=== PATIENT | male | born 1970 | race Caucasian/White ===

== ENCOUNTER → 2024-07-02 | Outpatient (CLI) | payer OTHER ==
[2024-07-02 11:18] LABS: INR 0.9 (<1.2); Prothrombin Time 10.3 sec (10.0-12.5)
[2024-07-02 14:52] LABS: HCT 44.1 % (39.6-50.0); HGB 14.1 g/dL (13.0-17.0); MCH 30.4 pg (27.0-32.0); Mean Platelet Volume 10.6 FL (9.5-12.2); NRBC Per 100 WBC 0 X 10*3/uL (0.00-0.01); Platelet Count 230 X 10*3/uL (140-440); RBC 4.64 X 10*6/uL (4.40-5.60); RDW 12.5 % (11.5-14.5); WBC 4.42 X 10*3/uL (4.50-10.00)
[2024-07-02 15:07] LABS: Blood Urea Nitrogen 18.9 mg/dL (9.0-27.0); Carbon Dioxide 25.3 mmol/L (21.6-31.8); Chloride 105 mmol/L (96-109); Glucose 99 mg/dL (70-110); Potassium 4.2 mmol/L (3.5-5.5); Sodium 141 mmol/L (135-145)
[2024-07-02 15:08] LABS: ALT 23 U/L (10-49); AST 18 U/L (14-35); Albumin 4.6 g/dL (3.8-4.9); Alkaline Phosphatase 54 U/L (41-126); Calcium 9.5 mg/dL (8.7-10.3); Globulin 2.3 g/dL (1.6-3.3); Total Bilirubin 0.9 mg/dL (0.3-1.2); Total Protein 6.9 g/dL (6.2-8.2)
== END | disposition home or self-care (01) ==
LOC: LABPAT 09:58
PROVIDERS: ATTEND Orthopaedic Surgery
DX: Z01.818 Encounter for other preprocedural examination (principal); Z22.322 Carrier or suspected carrier of Methicillin resistant Staphylococcus aureus; E11.9 Type 2 diabetes mellitus without complications; M17.12 Unilateral primary osteoarthritis, left knee
CPT/HCPCS: 36415; 80053; 83036; 85027; 85610; 85730; 93005

== ENCOUNTER → 2024-07-09 | Outpatient (CLI) | payer OTHER ==
--- NOTE | 2024-07-09 10:40 | CT ---
EXAMINATION TYPE: CT left knee - [facility] Protocol DATE OF EXAM: 07/09/2024 10:20 AM COMPARISON: None. CLINICAL INDICATION: Male, 54 years old with history of M25.562 pain L knee, LT knee [facility] protocol, TECHNIQUE: CT scanning of the pelvis, bilateral knees, and bilateral ankles with coronal and sagittal reconstructions performed. CT DLP: 735 mGycm, Automated exposure control for dose reduction was used. FINDINGS: Pelvis: There appears to be a prominent anterolisthesis at L5-S1 possibly secondary to L5 pars defects. Degen erative bony ankylosis at the bilateral SI joints. Sigmoid diverticulosis and moderate stool. Multiple pelvic phleboliths. Mild right greater than left hip degenerative change. No acute fracture, subluxation, dislocation seen. Bilateral Knees: There is moderate to severe degenerative change of both medial compartments. Additional degenerative spurring patellofemoral compartment with moderate bilateral knee joint effusions. Small Padilla's cyst on the left. Bilateral Ankles: The tibiotalar and subtalar joints appear intact. No acute fracture, subluxation, or dislocation is s een. IMPRESSION: 1. PELVIS: THERE APPEARS TO BE A PROMINENT ANTEROLISTHESIS AT L5-S1 POSSIBLY SECONDARY TO L5 PARS DEF ECTS. DEGENERATIVE BONY ANKYLOSIS SI JOINTS. MILD RIGHT GREATER THAN LEFT HIP OA. SIGMOID DIVERTICULO SIS. 2. KNEES: MODERATE TO SEVERE DEGENERATIVE CHANGE BILATERAL MEDIAL COMPARTMENTS. MODERATE KNEE JOINT E FFUSIONS. SMALL PADILLA'S CYST ON THE LEFT. 3. ANKLES: NO ACUTE OSSEOUS ABNORMALITY SEEN. [facility], , 07/09/2024 10:37 AM
== END | disposition home or self-care (01) ==
LOC: RADCTMAIN 07:42
PROVIDERS: ATTEND Orthopaedic Surgery
DX: M17.12 Unilateral primary osteoarthritis, left knee (principal); K57.30 Diverticulosis of large intestine without perforation or abscess without bleeding; M16.12 Unilateral primary osteoarthritis, left hip; M17.0 Bilateral primary osteoarthritis of knee; M25.462 Effusion, left knee; M53.3 Sacrococcygeal disorders, not elsewhere classified; M71.22 Synovial cyst of popliteal space [Baker], left knee

== ENCOUNTER → 2024-07-14 | Outpatient (CLI) | payer OTHER | END | disposition home or self-care (01) | LOC: LABWHC1 08:32 | PROVIDERS: ATTEND Orthopaedic Surgery | DX: Z01.818 Encounter for other preprocedural examination (principal); Z22.322 Carrier or suspected carrier of Methicillin resistant Staphylococcus aureus; M17.12 Unilateral primary osteoarthritis, left knee; E11.9 Type 2 diabetes mellitus without complications | CPT/HCPCS: 87070 ==

== ENCOUNTER → 2024-12-31 | Outpatient (CLI) | payer OTHER ==
[2024-12-31 10:46] LABS: INR 1.0 (<1.2); Partial Thromboplastin Time 24.9 sec (22.0-30.0); Prothrombin Time 10.7 sec (10.0-12.5)
[2024-12-31 15:26] LABS: HCT 41.0 % (39.6-50.0); HGB 13.4 g/dL (13.0-17.0); MCH 31.7 pg (27.0-32.0); MCHC 32.7 g/dL (32.0-37.0); MCV 96.9 FL (80.0-97.0); NRBC Per 100 WBC 0 X 10*3/uL (0.00-0.01); Platelet Count 208 X 10*3/uL (140-440); RBC 4.23 X 10*6/uL (4.40-5.60); RDW 12.9 % (11.5-14.5); WBC 4.42 X 10*3/uL (4.50-10.00)
[2024-12-31 15:55] LABS: BUN/Creat Ratio 19.12 Ratio (12.00-20.00); Blood Urea Nitrogen 15.3 mg/dL (9.0-27.0); Chloride 106 mmol/L (96-109); Glucose 85 mg/dL (70-110); Potassium 4.3 mmol/L (3.5-5.5); Sodium 141 mmol/L (135-145)
[2024-12-31 15:56] LABS: ALT 29 U/L (10-49); AST 22 U/L (14-35); Albumin 4.2 g/dL (3.8-4.9); Albumin/Globulin Ratio 3.23 Ratio (1.60-3.17); Alkaline Phosphatase 47 U/L (41-126); Anion Gap 12.20 mmol/L (4.00-12.00); Calcium 8.3 mg/dL (8.7-10.3); Carbon Dioxide 22.8 mmol/L (21.6-31.8); Globulin 1.3 g/dL (1.6-3.3); Total Protein 5.5 g/dL (6.2-8.2)
--- NOTE | 2025-01-01 11:20 | CT ---
EXAMINATION TYPE: CT right knee - [facility] Protocol DATE OF EXAM: 12/31/2024 11:40 AM COMPARISON: None. CLINICAL INDICATION: Male, 54 years old with history of M17.11 UNILATERAL PRIMARY OSTEOARTHRITIS, RIG HT KN, , pain TECHNIQUE: [facility] presurgical planning of the right knee. Images were obtained in the axial plane at 2 mm thick sections through the hip and ankle and 1 mm thick sections through the knee. Reconstructed i mages in the coronal and sagittal plane are reviewed. Contrast used: mL of , (none if empty) Oral contrast used: (none if empty) CT DLP: 585 mGycm, Automated exposure control for dose reduction was used. FINDINGS: Hip: Right femoral head articulates with the acetabulum. Diffuse joint space narrowing of the bilater al hips is noted. No acute fracture is evident. Knee: There is moderate severe narrowing of the medial compartment joint space. Anterior tibial plate au femoral condylar spurring is noted. Medial and lateral femoral condylar spurring tibial plateau sp urring is evident. There is narrowing of the patellofemoral joint space. Small joint effusion is pres ent. Mild to moderate narrowing of the lateral compartment joint space is present. Ankle: Ankle mortise sees appear normal bilaterally. No acute fractures evident. Soft tissues are nor mal. IMPRESSION: 1. CT for [facility] knee presurgical planning. [facility], Workstation: [facility], 01/01/2025 11:18 AM
== END | disposition home or self-care (01) ==
LOC: RADCTMAIN 09:29
PROVIDERS: ATTEND Orthopaedic Surgery
DX: Z01.818 Encounter for other preprocedural examination (principal); Z01.812 Encounter for preprocedural laboratory examination; Z22.322 Carrier or suspected carrier of Methicillin resistant Staphylococcus aureus; M17.11 Unilateral primary osteoarthritis, right knee; M25.461 Effusion, right knee; E11.9 Type 2 diabetes mellitus without complications
CPT/HCPCS: 80053; 83036; 85027; 85610; 85730; 87070; 93005

== ENCOUNTER 2025-01-11 05:36 | Day surgery (SDC) | payer OTHER ==
[2025-01-11] MEDS ORDERED: fentaNYL (PF) 50 MCG/ML 2 ML AMP IVP PRN (05:48)
[2025-01-11] MEDS ORDERED: LIDOCAINE 1% (10MG/ML) FOR IV START INTRADERMA PRN (05:48)
[2025-01-11] MEDS ORDERED: DEXAMETHASONE SOD PHOSPHATE 4 MG/ML 1 ML VIAL IV ONE (05:48)
[2025-01-11] MEDS ORDERED: TRANEXAMIC 1,000 MG/100ML-NACL 1,000 MG in SALINE 1 100ML.BAG IVPB SCH (06:00)
[2025-01-11] MEDS ORDERED: ONDANSETRON 4 MG/2 ML VIAL IVP PRN (06:00)
[2025-01-11] MEDS: IV FLUID CONTINUATION 1,000 ML IV ONE ×2 (06:06→11:53)
[2025-01-11] MEDS: ONDANSETRON 4 MG/2 ML VIAL IVP ONE (06:22)
[2025-01-11] MEDS: LACTATED RINGERS 1,000 ML IV SCH (06:22)
[2025-01-11] MEDS: DEXAMETHASONE SOD PHOSPHATE 10 MG/ML 1 ML VIAL IV PRN (06:30)
[2025-01-11] MEDS: FAMOTIDINE 20 MG/2 ML VIAL IVP PRN (06:30)
[2025-01-11] MEDS: KETOROLAC 15 MG/ML 1 ML VIAL IVP PRN (06:30)
[2025-01-11] MEDS: DOCUSATE 100 MG CAP PO PRN (06:30)
[2025-01-11] MEDS: ACETAMINOPHEN TAB 500 MG TAB PO PRN (06:30)
[2025-01-11] MEDS: oxyCODONE ER 10 MG TAB.ER.12H PO PRN (06:30)
[2025-01-11] MEDS: MIDAZOLAM 2 MG/2 ML VIAL IV PRN (06:39)
[2025-01-11] MEDS ORDERED: fentaNYL (PF) 50 MCG/ML 2 ML AMP ONE (06:55)
[2025-01-11] MEDS ORDERED: LIDOCAINE 1% INJ 10MG/ML (20 ML MDV) ONE (06:55)
[2025-01-11] MEDS ORDERED: ROPIVACAINE 5 MG/ML 30 ML VIAL ONE (06:55)
[2025-01-11] MEDS ORDERED: ROCURONIUM 10 MG/ML (5 ML VIAL) IV ONE (06:55)
[2025-01-11] MEDS ORDERED: HYDROmorphone (PF) 1 MG/ML ONE (06:55)
[2025-01-11] MEDS ORDERED: PROPOFOL 10 MG/ML 20 ML VIAL IV ONE (06:55)
[2025-01-11] MEDS ORDERED: NEOSTIGMINE 1 MG/ML 10 ML VIAL ONE (06:55)
[2025-01-11] MEDS ORDERED: TRANEXAMIC 1,000 MG/100ML-NACL PREMIX BAG ONE (06:55)
[2025-01-11] MEDS ORDERED: PHENYLEPHRINE-0.9% NACL SYG 1,000 MCG/10 ML SYRINGE ONE (06:55)
[2025-01-11] MEDS ORDERED: SUCCINYLCHOLINE CHLORIDE 200 MG/10 ML VIAL IV ONE (06:55)
[2025-01-11] MEDS ORDERED: GLYCOPYRROLATE 0.2 MG/ML 2 ML VIAL ONE (06:55)
[2025-01-11] MEDS ORDERED: DEXAMETHASONE SOD PHOSPHATE 4 MG/ML 1 ML VIAL ONE (06:55)
[2025-01-11] MEDS ORDERED: MAGNESIUM HYDROXIDE 2,400 MG/30 ML CUP PO PRN (07:07)
[2025-01-11] MEDS ORDERED: HYDROcodone/APAP 10-325MG 1 EACH TAB PO PRN (07:07)
[2025-01-11] MEDS ORDERED: NALOXONE 0.4 MG/ML 1 ML VIAL IV PRN (07:07)
[2025-01-11] MEDS ORDERED: ACETAMINOPHEN TAB 325 MG TAB PO PRN (07:07)
[2025-01-11] MEDS ORDERED: HYDROmorphone 0.5 MG/0.5 ML SYRINGE IVP PRN ×2 (07:07)
[2025-01-11] MEDS ORDERED: HYDROmorphone 1 MG/ML 1 ML SYRINGE IVP PRN (07:07)
[2025-01-11] MEDS ORDERED: NA PHOS,M-B/NA PHOS,DI-BA 133 ML ENEMA RECTAL PRN (07:07)
[2025-01-11] MEDS ORDERED: hydrOXYzine HCL 25 MG TAB PO PRN (07:07)
[2025-01-11] MEDS ORDERED: SODIUM CHLORIDE 0.9% 1,000 ML IV SCH (07:15)
--- NOTE | 2025-01-11 07:20 | P.ANPRN ---
Procedure Note - Anesthesia - Nerve Block Performed Right iPack Single Time Out Performed: Yes Date of Procedure: 01/11/25 Procedure Start Time: 06:38 Procedure Stop Time: 06:43 Location of Patient: PreOp Indication: Acute Post-Operative Pain, Analgesia, Requested by Surgeon Sedation Type: Sedate with meaningful contact maintained Preparation: Sterile Prep Position: Left Lateral Catheter: None Needle Types: Pajunk Needle Gauge: 21 Ultrasound used to visualize needle placement: Yes Ultrasound used to observe medication spread: Yes Injectate: 0.5% Ropivacaine (see comment for volume) ([id number]) Blood Aspirated: No Pain Paresthesia on Injection Noted: No Resistance on Injection: Normal Image Stored and Saved: Yes Events: Uneventful and Well Tolerated
--- NOTE | 2025-01-11 07:22 | P.ANPRN ---
Procedure Note - Anesthesia - Nerve Block Performed Right Adductor Canal Single Time Out Performed: Yes Date of Procedure: 01/11/25 Procedure Start Time: 06:43 Procedure Stop Time: 06:48 Location of Patient: PreOp Indication: Acute Post-Operative Pain, Analgesia, Requested by Surgeon Sedation Type: Sedate with meaningful contact maintained Preparation: Sterile Prep Position: Supine Catheter: None Needle Types: Pajunk Needle Gauge: 21 Ultrasound used to visualize needle placement: Yes Ultrasound used to observe medication spread: Yes Injectate: 0.5% Ropivacaine (see comment for volume) ([id number]) Blood Aspirated: No Pain Paresthesia on Injection Noted: No Resistance on Injection: Normal Image Stored and Saved: Yes Events: Uneventful and Well Tolerated
[2025-01-11] MEDS: ROPIVACAINE/EPI/CLONIDINE/KET 50 ML SYRINGE MISCELLANE PRN (08:01)
[2025-01-11] MEDS: LACTATED RINGERS 1,000 ML IV ONE (08:35)
--- NOTE | 2025-01-11 08:47 | P.OP ---
Date of Procedure: 01/11/25 Preoperative Diagnosis: Right knee medial compartment arthritis Postoperative Diagnosis: Same Procedure(s) Performed: 1. Right knee medial unicompartmental arthroplasty 2. Computer assisted musculoskeletal navigation using CT/MRI images Implants: 1. [place] [employer] MCK Size 5 Femoral component 2. [place] Restoris MC Size 4 tibial onlay baseplate 3. [place] Size 4, 9-mm poly liner Anesthesia: GETA, regional Surgeon: Haresh Herzog Dry Talc Racker #1: Loi Cuevas Estimated Blood Loss (ml): 100 IV fluids (ml): 800 Pathology: none sent Condition: stable Disposition: PACU Indications for Procedure: The patient is a very pleasant 54 year old male with bilateral knee arthritis. He previously underwent a left medial UKA and did well. He failed non-operative treatment on his right knee and requested proceeding with surgery. We discussed both partial medial UKA and TKA, including the pros and cons of both. He elected to proceed with surgery. I met with the patient preoperatively in the office setting and discussed treatment of their symptomatic knee arthritis. The patient has isolated pain over the medial compartment and has imaging confirming isolated medial compartment arthritis. We discussed the pros and cons of a partial versus total knee replacement. Based on the patient's imaging and clinical exam I think that there are good candidate for a partial medial knee replacement. We discussed the benefits of this compared to conventional total knee replacement including faster recovery and a more normal feeling knee. We discussed the limitations in a partial knee replacement particularly progression of arthritis in the patellofemoral and lateral compartment. The patient understood this and agreed to proceed with a partial knee replacement. I discussed the potential risks and complications at length and gave them ample time to ask questions. Risks discussed included: risks from anesthesia, superficial site surgical infection, acute and/or chronic periprosthetic joint infection, delayed wound healing, drainage, wound necrosis, instability, stiffness, stiffness requiring manipulation and/or revision surgery, progression of arthritis in the patellofemoral and lateral compartment, damage to local blood vessels or nerves, aseptic loosening of the implants, extensor mechanism issues including disruption, patellar maltracking, avascular necrosis etc., continued or worsened knee pain, generalized dissatisfaction with surgical outcome, need for revision surgery, an inability to regain preinjury level of function, DVT, PE, other medical complications, and possibly loss of life or limb. The patient voiced their understanding that while these are the most common complications other less common complications are possible. They provided both their verbal and written consent to go forward with surgery. Operative Findings: Full-thickness cartilage loss in the medial compartment with exposed subchondral bone. Intact cartilage with NO WEAR in the femoral trochlea and lateral compartment. Small area of partial-thickness cartilage loss on the medial facet of the patella, otherwise intact cartilage on both the medial and lateral facets of the patella. The ACL was probed and found to be intact. Given the condition of the patellofemoral and lateral compartments, I elected to proceed with a medial UKA. Description of Procedure: The patient was identified in preoperative holding and the correct operative extremity was verified and marked with a marker. I reviewed the consent form with the patient at length. All of their questions were answered. The patient was given a block by anesthesia. They were then brought back to the operating room. They were transferred onto the operating room table where a general anesthetic, preoperative antibiotics, and tranexamic acid were administered by anesthesia. A tourniquet was applied to the proximal aspect of the operative extremity. The contralateral extremity was padded under the heel and secured to the operating room table with a nonsterile blue towel and tape. The ipsilateral arm was carefully draped across the patient's chest and secured with a pillow and foam. A post was applied over the lateral aspect of the ipsilateral thigh and a bolster was placed under the ipsilateral foot. I verified that the operative extremity was stable and the knee was flexed to 90. The operative extremity was then placed in a leg paz, nonsterile drapes were applied, and the extremity was prepped and draped sterilely in the standard sterile fashion. Prior to starting surgery timeout was performed identifying the correct patient, operative extremity, and procedure. The leg was then elevated, exsanguinated with an Esmarch bandage, and the tourniquet was inflated. An anterior midline incision was made sharply with a scalpel. Once I had dissected deep to the superficial fascial layer medial and lateral flaps were elevated. A medial parapatellar arthrotomy was created taking care to not inadvertently damaged cartilage in the femoral trochlea since a partial medial compartmental arthroplasty was anticipated. Upon opening the knee joint there w as severe arthritic changes in the medial compartment, but the patellofemoral and lateral compartment were free from arthritic changes. Having confirmed isolated medial compartment arthritis I proceeded to perform a partial medial compartment arthroplasty. The anterior horn of the medial meniscus was sharply released and a limited medial release was performed around the posterior medial corner of the knee to facilitate retractor placement. A small portion of the fat pad was excised with electrocautery just to allow visualization. The ACL and PCL were probed and found to be intact. 4 mm pins were then placed within the incision in the medial distal femur and proximal tibia. Arrays were applied to the pins and I verified they were completely tightened. The knee was then registered with the [employer] robot and manipulations in implant position were made to balance the knee and opitmize implant position. Using the [employer] robotic saw and brent all cuts were made in accordance with our plan. All bony fragments were removed. Local anesthetic was then infiltrated around the joint capsule. Trial implants were then placed within the knee. Range of motion and collateral ligament tension was then evaluated. Once the knee was felt to be appropriately balanced the Ze pins were removed. With the trial components in place, the patella tracked midline. All trial components were then removed from the knee. The knee was thoroughly irrigated with pulsatile lavage. Cement was prepared via vacuum mixing in a bowl on the back table. I then hand pressurized cement into the femur and tibia and placed the implants beginning with the tibial base tray, femoral component, and finally the poly liner. All extruded cement was removed including from the pin sites. Once the cement had hardened the knee was evaluated one final time with the final polyethylene liner in place. The knee had full extension and flexion and felt stable to varus and valgus stress throughout the arc of motion. The tourniquet was released and with the tourniquet down the patella tracked midline. All bleeders were controlled with electrocautery. The knee was thoroughly irrigated using 3 L of sterile saline and pulsatile lavage. The extensor mechanism was then reapproximated using pop off Vicryl sutures followed by a running barbed suture. The knee was then closed in layers with a 0 strata fix for the deep fascial layer, 2-0 strata fix for the superficial subcutaneous layer and Monocryl and Steri-Strips for the skin. A sterile dressing was applied. I verified that all instrument, sponge, and sharp counts were correct. The patient was then transferred off the operating room table, extubated, and brought to recovery having tolerated the procedure well. Loi Cuevas PA-C was required as a skilled radiology assistant due to the complexity of surgery for patient positioning, draping, exposure, retraction, closure of wound and application of dressing. PLAN: The patient can weight-bear as tolerated on the operative extremity. DVT prophylaxis with aspirin 81 mg twice a day based on preoperative risk stratification. The patient is going to attempt to leave as an outpatient. They can be discharged as long as they passed physical therapy and her pain is controlled. Follow-up in the office in 2 weeks for wound check and x-rays of the knee including an AP and lateral.
[2025-01-11 09:09] VITALS: TEMP 97.4
[2025-01-11] MEDS: HYDROmorphone 0.5 MG/0.5 ML SYRINGE IVP PRN (09:31)
--- NOTE | 2025-01-11 09:57 | XR ---
EXAMINATION TYPE: XR knee limited RT DATE OF EXAM: 01/11/2025 COMPARISON: NONE CLINICAL INDICATION: Male, 54 years old with history of Evaluation for Postop abnormality and alignme nt; TECHNIQUE: Two views submitted FINDINGS: There is surgical change knee in near anatomic alignment. Small amount of soft tissue edema and air c ompatible with recent surgery. IMPRESSION: 1. Postoperative change. [facility], , 01/11/2025 9:55 AM
[2025-01-11 10:25] VITALS: RESP 16
[2025-01-11] MEDS: HYDROcodone/APAP 5-325MG 1 EACH TAB PO PRN (10:30)
[2025-01-11 12:47] VITALS: BP 118/74; PULSE 55
[2025-01-11] MEDS ORDERED: SENNOSIDES-DOCUSATE SODIUM 1 EACH TAB PO SCH (21:00)
[2025-01-11] MEDS ORDERED: ASPIRIN 81 MG PO SCH (21:00)
== END 2025-01-11 13:09 | disposition home or self-care (01) ==
LOC: OR 05:36
PROVIDERS: ATTEND Orthopaedic Surgery
DX: M17.11 Unilateral primary osteoarthritis, right knee (principal); G89.18 Other acute postprocedural pain; K21.9 Gastro-esophageal reflux disease without esophagitis
CPT/HCPCS: 0055T; 27446; 64447; 64473